=== PATIENT | female | born 1985 | race Caucasian/White ===

== ENCOUNTER 2016-08-11 20:03 | Emergency (ER) | payer BC ==
[~2016-08-11] VITALS: Ht 152.4 cm; Wt 59.0 kg
[~2016-08-11 20:03] MED LIST: ROBITUSSIN100 MG/5 M PO
== END 2016-08-11 21:42 | disposition short-term general hospital (02) ==
LOC: ER 20:03
DX: K59.00 Constipation, unspecified (principal); F17.200 Nicotine dependence, unspecified, uncomplicated
CPT/HCPCS: J1885